=== PATIENT | male | born 1980 | race African-American/Black ===

== ENCOUNTER 2016-12-05 07:29 | Emergency (ER) | payer SELFPAY ==
[~2016-12-05] VITALS: Ht 180.3 cm; Wt 70.3 kg
[~2016-12-05 07:29] MED LIST: FAMO-63 PO; ONDA4TAB10 SL; PRED20TA PO
[2016-12-05 07:43] VITALS: BP 121/72
[2016-12-05] MEDS ORDERED: ONDANSETRON ODT 4 MG TAB.RAPDIS. PO ONE (07:45)
[2016-12-05] MEDS ORDERED: LIDO:MAALOX:DONNATAL 1:1:1 15 ML SINGLE DOSE PO ONE (07:45)
[2016-12-05] MEDS ORDERED: ONDA4TAB10 SL (07:51)
--- NOTE | 2016-12-05 07:53 | PHYS DOC ---
Past Medical History Past Medical History: GERD Past Surgical History: No Surgical History Alcohol Use: None Drug Use: None Adult General Chief Complaint Chief Complaint: NAUSEA/VOMITING/DIARRHA HPI HPI Patient is a 36 year old to the emergency department to do day history of nausea, vomiting, diarrhea. Patient reports that yesterday he took clear liquids would seem to resolve the symptoms. He states he ate breakfast this morning he went to work and when he arrived at work, he vomited. Patient states his boss sent him home so he came to the emergency department to be treated. Patient reports that he has had epigastric burning for 2 days. He states that at the onset of the burning he had eaten spicy fish. He does report a history of gastric ulcers. He states he is taking his Protonix as directed. He notes there is been no hematemesis or noted blood in the stool. Review of Systems Review of Systems Constitutional: Denies fever or chills [] Eyes: Denies change in visual acuity, redness, or eye pain [] HENT: Denies nasal congestion or sore throat [] Respiratory: Denies cough or shortness of breath [] Cardiovascular: No additional information not addressed in HPI [] GI: Epigastric burning, nausea, vomiting, diarrhea : Denies dysuria or hematuria [] Musculoskeletal: Denies back pain or joint pain [] Integument: Denies rash or skin lesions [] Neurologic: Denies headache, focal weakness or sensory changes [] Endocrine: Denies polyuria or polydipsia [] Current Medications Current Medications Current Medications Medications (Trade) Dose Ordered Sig/Jeane Start Time Stop Time Status Last Admin Dose Admin Multi-Ingredient Mouthwash/Gargle (Gi Cocktail Single Dose) 15 ml 1X ONCE 12/05/16 07:45 12/05/16 07:47 DC 12/05/16 08:05 15 ML Ondansetron HCl (Zofran Odt) 4 mg 1X ONCE 12/05/16 07:45 12/05/16 07:47 DC 12/05/16 08:05 4 MG Allergies Allergies Allergies Coded Allergies Type Severity Reaction Last Updated Verified No Known Drug Allergies 02/08/16 No Physical Exam Physical Exam Constitutional: Well developed, well nourished, no acute distress, non-toxic appearance. [] HENT: Normocephalic, atraumatic, bilateral external ears normal, oropharynx moist, no oral exudates, nose normal. [] Eyes: PERRLA, EOMI, conjunctiva normal Neck: Normal range of motion, no tenderness, supple Cardiovascular:Heart rate regular rhythm, no murmur [] Lungs & Thorax: Bilateral breath sounds clear to auscultation [] Abdomen: Epigastric tenderness on exam. There are no masses, no distention. Bowel sounds normoactive. Skin: Warm, dry, no erythema, no rash. [] Back: No tenderness, no CVA tenderness. [] Neurologic: Alert and oriented X 3 Current Patient Data Vital Signs Vital Signs Date Time Temp Pulse Resp B/P (MAP) Pulse Ox O2 Delivery O2 Flow Rate FiO2 12/05/16 07:43 98.5 72 18 121/72 (88) Room Air 98.5 EKG EKG [] Radiology/Procedures Radiology/Procedures [] Course & Med Decision Making Course & Med Decision Making Patient reports relief of nausea after Zofran, denies gastric burning after drinking GI cocktail. Plan will be for discharge home with clear liquids for 24 hours. Patient's agreement with this plan and verbalized understanding. He is advised to return to the emergency Department for new symptoms or concerns or worsening of current condition. Pertinent Labs and Imaging studies reviewed. (See chart for details) [] Dragon Disclaimer Dragon Disclaimer This electronic medical record was generated, in whole or in part, using a voice recognition dictation system. Departure Departure Impression: Primary Impression: Gastroenteritis Disposition: 01 HOME, SELF-CARE Condition: STABLE Referrals: NO PCP (PCP) Patient Instructions: Clear Liquid Diet, Viral Gastroenteritis Additional Instructions: Return to the emergency Department for new symptoms or concerns or worsening of current condition. Scripts Ondansetron (ZOFRAN ODT) 4 Mg Tab.rapdis 1 TAB SL Q8HRS Y for nausea and vomiting, #15 TAB Prov: DHRUV PARKER APRN 12/05/16 DHRUV PARKER APRN Dec 05, 2016 07:53
== END 2016-12-05 08:32 | disposition home or self-care (01) ==
LOC: ER 07:29
DX: K52.9 Noninfective gastroenteritis and colitis, unspecified (principal); K21.9 Gastro-esophageal reflux disease without esophagitis
CPT/HCPCS: 99283; Q0162

== ENCOUNTER 2017-01-29 07:03 | Emergency (ER) | payer OTHER ==
[~2017-01-29] VITALS: Ht 180.3 cm; Wt 70.3 kg
[2017-01-29 07:13] VITALS: BP 131/82
[2017-01-29] MEDS ORDERED: PRED20TA PO (07:57)
--- NOTE | 2017-01-29 07:58 | PHYS DOC ---
Past Medical History Past Medical History: GERD Additional Past Medical Histor: ulcerative colitis, allergies Past Surgical History: No Surgical History Alcohol Use: None Drug Use: None Adult General Chief Complaint Chief Complaint: FACE PROBLEM HPI HPI Patient is a 36 year old male presents to the emergency department with two jw areas noted to bilateral wrist. Patient state he had bilateral swollen eyes. Patient denies shortness of air difficulty breathing, he denies any fever , chills or nausea vomiting. Review of Systems Review of Systems Constitutional: Denies fever or chills [] Eyes: Denies change in visual acuity, redness, or eye pain [] HENT: Denies nasal congestion or sore throat [] Respiratory: Denies cough or shortness of breath [] Cardiovascular: No additional information not addressed in HPI [] GI: Denies abdominal pain, nausea, vomiting, bloody stools or diarrhea [] : Denies dysuria or hematuria [] Musculoskeletal: Denies back pain or joint pain [] Integument: rash denies skin lesions [] Neurologic: Denies headache, focal weakness or sensory changes [] Endocrine: Denies polyuria or polydipsia [] Allergies Allergies Allergies Coded Allergies Type Severity Reaction Last Updated Verified No Known Drug Allergies 02/08/16 No Physical Exam Physical Exam Constitutional: Well developed, well nourished, no acute distress, non-toxic appearance. [] HENT: Normocephalic, atraumatic, bilateral external ears normal, oropharynx moist, no oral exudates, nose normal. Eyes: PERRLA, EOMI, conjunctiva normal, no discharge. Patient with bilateral lower eye lids with minimal swelling noted. [] Neck: Normal range of motion, no tenderness, supple, no stridor. [] Cardiovascular:Heart rate regular rhythm, no murmur [] Lungs & Thorax: Bilateral breath sounds clear to auscultation [] Skin: Warm, dry, no erythema, Patient with 2 red spots noted one on each wrist area. No drainage or discharge noted to the area. Back: No tenderness Extremities: No tenderness, no cyanosis, no clubbing, ROM intact, no edema. [] Neurologic: Alert and oriented X 3, normal motor function, normal sensory function, no focal deficits noted. [] Psychologic: Affect normal, judgement normal, mood normal. [] Current Patient Data Vital Signs Vital Signs Date Time Temp Pulse Resp B/P (MAP) Pulse Ox O2 Delivery O2 Flow Rate FiO2 01/29/17 07:13 98.0 73 18 98 Room Air 98.0 EKG EKG [] Radiology/Procedures Radiology/Procedures [] Course & Med Decision Making Course & Med Decision Making Pertinent Labs and Imaging studies reviewed. (See chart for details) Patient was recommended Benadryl 25 mg every 6 hours. He was instructed this medication will cause drowsiness do not take any be alert and oriented. Patient will be provided with prescription for prednisone. He'll be provided with a work note for 1-2 days off. Patient was also recommended to keep the areas clean dry and cool. Recommended Zyrtec or Claritin after he completed the steroids. Patient agrees with discharge instructions were regimens and follow- up recommendations. Signs and symptoms to return back to emergency department as been provided. All questions and concerns have been answered at patients bedside. [] Dragon Disclaimer Dragon Disclaimer This electronic medical record was generated, in whole or in part, using a voice recognition dictation system. Departure Departure Impression: Primary Impression: Contact dermatitis Additional Impression: Eye swollen, bilateral Disposition: 01 HOME, SELF-CARE Condition: STABLE Referrals: NO PCP (PCP) Patient Instructions: Contact Dermatitis, [id number] Additional Instructions: Activity as tolerated. Benadryl 25 mg every 6 hours as needed for itching or irritation. Prednisone as prescribed. Keep the areas clean dry and cool. Follow-up to primary care physician in the next week. Return back to emergency department sign symptoms of become worse. Scripts Prednisone (PREDNISONE) 20 Mg Tablet 40 MG PO DAILY for 7 Days, #14 TAB Prov: GLORIA SPARKS APRN 01/29/17 Problem Qualifiers Primary Impression: Contact dermatitis Contact dermatitis type: unspecified Contact dermatitis trigger: unspecified trigger Qualified Codes: L25.9 - Unspecified contact dermatitis, unspecified cause GLORIA SPARKS APRN Jan 29, 2017 07:58
== END 2017-01-29 08:02 | disposition home or self-care (01) ==
LOC: ER 07:03
DX: L25.9 Unspecified contact dermatitis, unspecified cause (principal); H57.8 Other specified disorders of eye and adnexa; K21.9 Gastro-esophageal reflux disease without esophagitis
CPT/HCPCS: 99283

== ENCOUNTER 2017-02-28 07:50 | Emergency (ER) | payer OTHER ==
[~2017-02-28] VITALS: Ht 180.3 cm; Wt 68.5 kg
--- NOTE | 2017-02-28 07:59 | PHYS DOC ---
Past Medical History Past Medical History: GERD Additional Past Medical Histor: ulcerative colitis, allergies Past Surgical History: No Surgical History Alcohol Use: None Drug Use: None Adult General Chief Complaint Chief Complaint: NAUSEA/VOMITING/DIARRHA HPI HPI Patient is a 36 year old male who presents with to vomiting diarrhea and abdominal pain. States she has a history of ulcer colitis and this feels similar to his previous episodes. He does not have a GI doctor. He does have a history of gastric ulcers and takes Zantac when necessary. He states his symptoms started this morning around 3 AM with an episode of nonbloody diarrhea and nonbloody vomiting. He states his abdominal pain is in the epigastric and left lower quadrant and comes in waves. His been constant since 3 AM. States nothing makes the pain better or worse. He states last night he ate a undercooked hamburger around 8 PM and wonders if that doesn't contribute to some of his symptoms. He did take a Zantac this morning and try to go back to work but vomited again at work. He states he's had 3 episodes of nonbloody BMs. Review of Systems Review of Systems Constitutional: Denies fever or chills Eyes: Denies change in visual acuity, redness, or eye pain HENT: Denies nasal congestion or sore throat Respiratory: Denies cough or shortness of breath Cardiovascular: No additional information not addressed in HPI GI: Positive for abdominal pain, nausea, vomiting, diarrhea,Denies bloody stools : Denies dysuria or hematuria Musculoskeletal: Denies back pain or joint pain Integument: Denies rash or skin lesions Neurologic: Denies headache, focal weakness or sensory changes Endocrine: Denies polyuria or polydipsia Current Medications Current Medications Current Medications Medications (Trade) Dose Ordered Sig/Jeane Start Time Stop Time Status Last Admin Dose Admin Info (Do NOT chart on this entry -- for MONITORING) 1 each PRN DAILY PRN 02/28/17 09:15 03/02/17 09:14 Iohexol (Omnipaque 240 Mg/ml) 50 ml 1X ONCE 02/28/17 09:15 02/28/17 09:16 DC 02/28/17 09:24 50 ML Iohexol (Omnipaque 300 Mg/ml) 75 ml 1X ONCE 02/28/17 09:15 02/28/17 09:16 DC 02/28/17 09:23 75 ML Morphine Sulfate 4 mg PRN Q15MIN PRN 02/28/17 08:15 02/28/17 08:25 DC Ondansetron HCl (Zofran) 4 mg 1X ONCE 02/28/17 08:15 02/28/17 08:16 DC 02/28/17 08:20 4 MG Sodium Chloride 1,000 ml @ 1,000 mls/hr Q1H 02/28/17 08:09 02/28/17 09:08 DC 02/28/17 08:19 1,000 MLS/HR Allergies Allergies Allergies Coded Allergies Type Severity Reaction Last Updated Verified morphine Allergy Mild SWELLING 02/28/17 Yes Physical Exam Physical Exam Constitutional: Well developed, well nourished, no acute distress, non-toxic appearance. HENT: Normocephalic, atraumatic, bilateral external ears normal, oropharynx moist, no oral exudates, nose normal. Eyes: PERRLA, EOMI, conjunctiva normal, no discharge. Neck: Normal range of motion, no tenderness, supple, no stridor. Cardiovascular:Heart rate regular rhythm, no murmur Lungs & Thorax: Bilateral breath sounds clear to auscultation Abdomen: Bowel sounds normal, soft, tender palpation epigastric and left lower quadrant, no guarding, no rebound, no masses, no pulsatile masses. Skin: Warm, dry, no erythema, no rash. Back: No tenderness, no CVA tenderness. Extremities: No tenderness, no cyanosis, no clubbing, ROM intact, no edema. Neurologic: Alert and oriented X 3, normal motor function, normal sensory function, no focal deficits noted. Psychologic: Affect normal, judgement normal, mood normal. Current Patient Data Vital Signs Vital Signs Date Time Temp Pulse Resp B/P (MAP) Pulse Ox O2 Delivery O2 Flow Rate FiO2 02/28/17 08:34 97.8 92 18 143/78 (99) 100 Room Air 97.8 Lab Values Laboratory Tests Test 02/28/17 07:58 02/28/17 08:05 Urine Collection Type Void Urine Color Yellow Urine Clarity Clear Urine pH 7.0 Urine Specific [place] 1.020 Urine Protein Negative mg/dL (NEG-TRACE) Urine Glucose (UA) Negative mg/dL (NEG) Urine Ketones (Stick) Negative mg/dL (NEG) Urine Blood Negative (NEG) Urine Nitrite Negative (NEG) Urine Bilirubin Negative (NEG) Urine Urobilinogen Dipstick 1.0 mg/dL (0.2 mg/dL) Urine Leukocyte Esterase Negative (NEG) Urine RBC 1-2 /HPF (0-2) Urine WBC Occ /HPF (0-4) Urine Squamous Epithelial Cells Few /LPF Urine Bacteria Few /HPF (0-FEW) Urine Mucus Marked /LPF Urine Opiates Screen Neg (NEG) Urine Methadone Screen Neg (NEG) Urine Barbiturates Neg (NEG) Urine Phencyclidine Screen Neg (NEG) Urine Amphetamine/Methamphetamine Neg (NEG) Urine Benzodiazepines Screen Neg (NEG) Urine Cocaine Screen Neg (NEG) Urine Cannabinoids Screen Pos (NEG) Urine Ethyl Alcohol Neg (NEG) White Blood Count 7.9 x10^3/uL (4.0-11.0) Red Blood Count 5.33 x10^6/uL (4.30-5.70) Hemoglobin 14.5 g/dL (13.0-17.5) Hematocrit 43.9 % (39.0-53.0) Mean Corpuscular Volume 82 fL (79-100) Mean Corpuscular Hemoglobin 27 pg (25-35) Mean Corpuscular Hemoglobin Concent 33 g/dL (31-37) Red Cell Distribution Width 13.4 % (11.5-14.5) Platelet Count 163 x10^3/uL (140-400) Neutrophils (%) (Auto) 60 % (31-73) Lymphocytes (%) (Auto) 27 % (24-48) Monocytes (%) (Auto) 6 % (0-9) Eosinophils (%) (Auto) 6 % (0-3) H Basophils (%) (Auto) 1 % (0-3) Neutrophils # (Auto) 4.7 x10^3uL (1.8-7.7) Lymphocytes # (Auto) 2.1 x10^3/uL (1.0-4.8) Monocytes # (Auto) 0.5 x10^3/uL (0.0-1.1) Eosinophils # (Auto) 0.5 x10^3/uL (0.0-0.7) Basophils # (Auto) 0.1 x10^3/uL (0.0-0.2) Sodium Level 142 mmol/L (136-145) Potassium Level 3.4 mmol/L (3.5-5.1) L Chloride Level 106 mmol/L (98-107) Carbon Dioxide Level 26 mmol/L (21-32) Anion Gap 10 (6-14) Blood Urea Nitrogen 10 mg/dL (8-26) Creatinine 1.0 mg/dL (0.7-1.3) Estimated GFR (Cockcroft-Gault) 103.5 Glucose Level 107 mg/dL (70-99) H Calcium Level 9.0 mg/dL (8.5-10.1) Total Bilirubin 0.5 mg/dL (0.2-1.0) Direct Bilirubin 0.1 mg/dL (0.0-0.2) Aspartate Amino Transferase (AST) 28 U/L (15-37) Alanine Aminotransferase (ALT) 29 U/L (16-63) Alkaline Phosphatase 45 U/L (46-116) L Creatine Kinase 105 U/L (39-308) Creatine Kinase MB (Mass) < 0.5 ng/mL (0.0-3.6) Creatine Kinase MB Relative Index % (0-4) Total Protein 6.9 g/dL (6.4-8.2) Albumin 4.0 g/dL (3.4-5.0) Lipase 135 U/L (73-393) Laboratory Tests 02/28/17 08:05 Laboratory Tests 02/28/17 08:05 EKG EKG [] Radiology/Procedures Radiology/Procedures PATIENT: RNAI PARRISH ACCOUNT: [id number] : 1980 LOCATION: ER AGE: 36 SEX: M EXAM STATUS: REG ER ORD. PHYSICIAN: LARA ABRAHAM MD REASON: abd pain PROCEDURE: CT ABD PELV W/ORAL&IV CONTRAST CT study of the abdomen and pelvis with contrast Clinical indications: Abdominal pain and nausea and vomiting today. Technique: After IV infusion of 75 cc of Omnipaque 300, helical CT scanning of the abdomen and pelvis was performed. GI contrast was administered per mouth. PQRS Compliance Statement: One or more of the following individualized dose reduction techniques were utilized for this examination: 1. Automated exposure control 2. Adjustment of the mA and/or kV according to patient size 3. Use of iterative reconstruction technique Comparison: None available. Findings: The liver and spleen and pancreas and gallbladder are normal. No extra hepatic biliary ductal dilatation is seen. No adrenal mass is evident. Both kidneys are normal without hydronephrosis or hydroureter. The urinary bladder wall is smooth. No focal aneurysmal dilatation of the abdominal aorta is seen. No enlarged abdominal or pelvic lymphadenopathy is evident. No obstructive bowel pattern is seen. There are no CT findings of appendicitis. No bowel wall thickening is evident. No free fluid or free air or mesenteric inflammatory change is evident. No lung base consolidation is evident. No osteolytic process is seen. IMPRESSION: No acute abnormality of the abdomen or pelvis is evident. DICTATED and SIGNED BY: DEEPA CHEN MD DATE: 02/28/17 1003 CC: LARA ABRAHAM MD; NO PCP ~ Impressions: Vomiting diarrhea Course & Med Decision Making Course & Med Decision Making Pertinent Labs and Imaging studies reviewed. (See chart for details) Labs, CT scan is nonacute. Patient is feeling better. We'll discharge with ODT Zofran and return precautions. Dragon Disclaimer Dragon Disclaimer This electronic medical record was generated, in whole or in part, using a voice recognition dictation system. Departure Departure Impression: Primary Impression: Nausea vomiting and diarrhea Disposition: 01 HOME, SELF-CARE Condition: STABLE Referrals: NO PCP (PCP) Patient Instructions: Diarrhea Additional Instructions: You were seen in the emergency department for your nausea vomiting and diarrhea. The CAT scan and blood work did not show any acute abnormalities. Your being discharged home. You should eat a bland diet for the next several days and her symptoms resolved. He can take Zofran for any nausea that he may have. You should follow-up with her primary care physician within the next week. Return to ER if you have high fevers, uncontrolled nausea vomiting, worsening abdominal pain, blood in your stool, or other concerns. Scripts Ondansetron (ZOFRAN ODT) 4 Mg Tab.rapdis 1 TAB SL Q8HRS, #10 TAB Prov: LARA ABRAHAM MD 02/28/17 LARA ABRAHAM MD Feb 28, 2017 07:59
[2017-02-28] MEDS ORDERED: IV NORMAL SALINE 1000ML BAG 1,000 ML IV SCH (08:09)
[2017-02-28] MEDS ORDERED: MORPHINE SULFATE 4 MG/ML DISP.SYRIN. IV/SQ PRN (08:15)
[2017-02-28] MEDS ORDERED: ONDANSETRON PF 4 MG/2 ML VIAL. IV ONE (08:15)
[2017-02-28 08:20] LABS: BASO # 0.1 x10^3/uL (0.0-0.2); BASO % 1 % (0-3); EOS % 6 % (0-3); HEMATOCRIT 43.9 % (39.0-53.0); HEMOGLOBIN 14.5 g/dL (13.0-17.5); LYMPH # 2.1 x10^3/uL (1.0-4.8); LYMPH % 27 % (24-48); MEAN CORPUSCULAR HEMOGLOBIN 27 pg (25-35); MEAN CORPUSCULAR HGB CONC 33 g/dL (31-37); MEAN CORPUSCULAR VOLUME 82 fL (79-100); MONO % 6 % (0-9); NEUT % 60 % (31-73); PLATELET COUNT 163 x10^3/uL (140-400); RED BLOOD COUNT 5.33 x10^6/uL (4.30-5.70); RED CELL DISTRIBUTION WIDTH 13.4 % (11.5-14.5); WHITE BLOOD COUNT 7.9 x10^3/uL (4.0-11.0)
[2017-02-28 08:25] LABS: BILIRUBIN,URINE NEGATIVE (NEG); GLUCOSE,URINE NEGATIVE (NEG); NITRITE,URINE NEGATIVE (NEG); PROTEIN,URINE NEGATIVE (NEG-TRACE)
[2017-02-28 08:26] LABS: BACTERIA,URINE FEW /HPF (0-FEW); SQUAMOUS EPITHELIAL CELL,UR FEW /LPF
[2017-02-28 08:27] LABS: WBC,URINE OCC /HPF (0-4)
[2017-02-28 08:35] LABS: BARBITURATES NEG (NEG); BENZODIAZEPINES NEG (NEG); CANNABINOIDS POS (NEG); COCAINE NEG (NEG); METHADONE NEG (NEG); OPIATES NEG (NEG); PHENCYCLIDINE NEG (NEG)
[2017-02-28 08:35] LABS: GFR 103.5; POTASSIUM 3.4 mmol/L (3.5-5.1)
[2017-02-28 08:39] LABS: DIRECT BILIRUBIN 0.1 mg/dL (0.0-0.2); TOTAL BILIRUBIN 0.5 mg/dL (0.2-1.0); TOTAL PROTEIN 6.9 g/dL (6.4-8.2)
[2017-02-28 08:46] LABS: CKMB MASS < 0.5 ng/mL (0.0-3.6); CREATINE KINASE 105 U/L (39-308)
[2017-02-28] MEDS ORDERED: IOHEXOL 240 MG/ML 50ML VIAL. PO ONE (09:15)
[2017-02-28] MEDS ORDERED: IOHEXOL 300 MG/ML 75 ML VIAL IV ONE (09:15)
[2017-02-28] MEDS ORDERED: CONTRAST GIVEN MC PRN (09:15)
--- NOTE | 2017-02-28 10:13 | RAD ---
CT study of the abdomen and pelvis with contrast Clinical indications: Abdominal pain and nausea and vomiting today. Technique: After IV infusion of 75 cc of Omnipaque 300, helical CT scanning of the abdomen and pelvis was performed. GI contrast was administered per mouth. PQRS Compliance Statement: One or more of the following individualized dose reduction techniques were utilized for this examination: 1. Automated exposure control 2. Adjustment of the mA and/or kV according to patient size 3. Use of iterative reconstruction technique Comparison: None available. Findings: The liver and spleen and pancreas and gallbladder are normal. No extra hepatic biliary ductal dilatation is seen. No adrenal mass is evident. Both kidneys are normal without hydronephrosis or hydroureter. The urinary bladder wall is smooth. No focal aneurysmal dilatation of the abdominal aorta is seen. No enlarged abdominal or pelvic lymphadenopathy is evident. No obstructive bowel pattern is seen. There are no CT findings of appendicitis. No bowel wall thickening is evident. No free fluid or free air or mesenteric inflammatory change is evident. No lung base consolidation is evident. No osteolytic process is seen. IMPRESSION: No acute abnormality of the abdomen or pelvis is evident.
[2017-02-28] MEDS ORDERED: ONDA4TAB10 SL (10:52)
[2017-02-28 11:05] VITALS: BP 118/65
== END 2017-02-28 11:21 | disposition home or self-care (01) ==
LOC: ER 07:50
DX: R11.2 Nausea with vomiting, unspecified (principal); R19.7 Diarrhea, unspecified; K21.9 Gastro-esophageal reflux disease without esophagitis; Z87.19 Personal history of other diseases of the digestive system; Z88.5 Allergy status to narcotic agent
CPT/HCPCS: 36415; 74177; 80048; 80076; 80307; 81001; 82553; 83690; 85025; 96361; 96374; 99285; J2405; J7030; Q9966; Q9967; G0479